=== PATIENT | female | born 1960 | race African-American/Black ===

== ENCOUNTER 2025-02-06 10:04 | Outpatient (CLI) | payer MEDICARE, OTHER, SELFPAY ==
--- NOTE | ~2025-02-06 | US_ITS ---
Limited Abdominal Sonogram: Real-time sonographic imaging of the right upper quadrant was performed. Clinical History: Right upper quadrant pain Findings: The liver appears normal with no evidence of mass lesion or bile duct dilatation. Main por nawaf vein demonstrates normal direction of flow. The gallbladder is well distended, and demonstrates 8 mm probable gallbladder wall polyp, nonmobile. The common bile duct measures 3 mm. The visualized pa ncreas, aorta, and IVC are unremarkable. Impression: 8 mm probable gallbladder wall polyp. Reviewed, dictated and finalized at location M. Impression: 8 mm probable gallbladder wall polyp.
== END 2025-02-06 10:05 | disposition home or self-care (01) ==
LOC: MICIMG 10:05
PROVIDERS: PCP Internal Medicine; Visit Provider Internal Medicine
DX: R10.11 Right upper quadrant pain (principal)
CPT/HCPCS: 76705